=== PATIENT | female | born 1990 ===

== ENCOUNTER 2016-11-03 13:58 | Emergency (ER) | payer OTHER ==
[2016-11-03 16:27] VITALS: BP 111/65
[2016-11-03] MEDS ORDERED: Ibuprofen TAB* 400 MG PO ONE (16:38)
--- NOTE | 2016-11-03 16:42 | UC ---
Headache HPI - HPI Summary HPI Summary: headache with light sensitivity. She gets these symptoms with sinus infections, which occur several times a year. No fever. Sinus drainage, yellow. Productive cough for 3 weeks. Mild nausea. No neck stiffness. No rash. Has history of migraines. - History Of Current Complaint Chief Complaint: Kayode Stated Complaint: HEADACHE/COUGH/CONGESTION Time Seen by Provider: 11/03/16 16:30 Hx Obtained From: Patient Hx Last Menstrual Period: 08/30/16 Onset/Duration: Gradual Onset, Lasting Weeks - 2 Onset Of Symptoms: Gradual, Still Present Currently Pain Is: Moderate Timing: Constant - worse first thing in AM. Didn't take any meds today Character: Dull, Throbbing, Pressure, Typical Headache, Migraine Location of Headache: Frontal Aggravating Factor: Bright Lights Allevating Factors: Nothing Associated Signs And Symptoms: Positive: Negative, Nausea, Sinus Pressure. Negative: Dizziness, Seizure, Vomiting, Fever, Neck Pain, Neck Stiffness, Decreased LOC, Visual Changes Related History: Similar Episode/DX As: - sinusitis - Risk Factors SAH Risk Factors: Negative Meningitis Risk Factors: Negative SDH Risk Factors: Negative Temporal Arteritis Risk Factors: Female, - Allergies/Home Medications Allergies/Adverse Reactions: Allergies Allergy/AdvReac Type Severity Reaction Status Date / Time No Known Allergies Allergy Verified 11/03/16 16:29 PMH/Surg Hx/FS Hx/Imm Hx Previously Healthy: Yes Endocrine History Of: Denies: Diabetes Cardiovascular History Of: Denies: Hypertension, Pacemaker/ICD GI/ History Of: Denies: Renal Disease - Surgical History Surgical History: None - Family History Known Family History: Positive: Diabetes, Other - GM with asthma - Social History Occupation: Unemployed Lives: With Family Alcohol Use: None Substance Use Type: None Smoking Status (MU): Never Smoked Tobacco - Immunization History Most Recent Influenza Vaccination: [id number] Review of Systems Constitutional: Chills, Fatigue Skin: Negative Eyes: Negative ENT: Sore Throat, Nasal Discharge Respiratory: Cough Cardiovascular: Negative Gastrointestinal: Negative Genitourinary: Negative Motor: Negative Neurovascular: Negative Musculoskeletal: Negative Neurological: Negative Psychological: Negative All Other Systems Reviewed And Are Negative: Yes Physical Exam Triage Information Reviewed: Yes Appearance: Well-Appearing, Well-Nourished, Pain Distress - sitting in dark room , looks uncomfortable Vital Signs: Initial Vital Signs Temp 98.3 F 11/03/16 16:24 Pulse 86 11/03/16 16:24 Resp 16 11/03/16 16:24 BP 111/65 11/03/16 16:24 Pulse Ox 100 11/03/16 16:24 Eye Exam: Normal Eyes: Positive: Conjunctiva Clear ENT: Positive: Pharynx normal, TMs normal, Other: - pain over frontal sinus Neck exam: Normal Neck: Positive: Supple Respiratory Exam: Normal Respiratory: Positive: Lungs clear Cardiovascular Exam: Normal Musculoskeletal Exam: Normal Neurological Exam: Normal Psychological Exam: Normal Skin Exam: Normal Headache Course/Dx - Differential Dx/Diagnosis Differential Diagnosis/HQI/PQRI: Migraine, Sinus Headache, Viral Syndrome Provider Diagnoses: sinusitis Discharge - Discharge Plan Condition: Stable Disposition: HOME Prescriptions: Amoxicillin/Clavulanate TAB* [Augmentin TAB 875*] 875 mg PO BID #20 tab Patient Education Materials: Sinusitis (ED) Referrals: Sandeep Beck MD [Medical Doctor] - Giorgio Morse MD [Primary Care Provider] -
== END 2016-11-03 16:50 | disposition home or self-care (01) ==
LOC: UCCORT 13:58
DX: J32.9 Chronic sinusitis, unspecified (principal)
CPT/HCPCS: 99212; A9270-GY; G0463

== ENCOUNTER 2017-05-12 09:39 | Emergency (ER) | payer OTHER ==
[2017-05-12 09:59] VITALS: BP 128/54
[2017-05-12] MEDS ORDERED: Lidocaine 2% PF * 5 ML VIAL INJ ONE (10:08)
--- NOTE | 2017-05-12 10:08 | UC ---
Lower Extremity/Ankle HPI - HPI Summary HPI Summary: complaint of painful swollen left great toe ingrown toenail for approx 1 week has been clipping toenail without effect has been soaking it and using salves without relief not taking any medications for pain denies fever and chills - History of Current Complaint Chief Complaint: UCLowerExtremity Stated Complaint: LEFT FOOT COMPLAINT Time Seen by Provider: 05/12/17 10:00 Hx Obtained From: Patient Hx Last Menstrual Period: 08/30/16 - Allergies/Home Medications Allergies/Adverse Reactions: Allergies Allergy/AdvReac Type Severity Reaction Status Date / Time No Known Allergies Allergy Verified 05/12/17 09:58 PMH/Surg Hx/FS Hx/Imm Hx Previously Healthy: Yes Neurological History: Seizures - Surgical History Surgical History: None - Family History Known Family History: Positive: Diabetes, Other - GM with asthma Negative: Cardiac Disease, Hypertension - Social History Occupation: Employed Full-time Lives: With Family Alcohol Use: None Substance Use Type: None Smoking Status (MU): Never Smoked Tobacco - Immunization History Most Recent Influenza Vaccination: [id number] Review of Systems Constitutional: Negative Skin: Other - swollen left great toe Eyes: Negative ENT: Negative Respiratory: Negative Cardiovascular: Negative Gastrointestinal: Negative Genitourinary: Negative Motor: Negative Neurovascular: Negative Musculoskeletal: Negative Neurological: Negative Psychological: Negative All Other Systems Reviewed And Are Negative: Yes Physical Exam Triage Information Reviewed: Yes Appearance: No Pain Distress, Well-Nourished Vital Signs: Initial Vital Signs Temp 98.9 F 05/12/17 09:55 Pulse 79 05/12/17 09:55 Resp 16 05/12/17 09:55 BP 128/54 05/12/17 09:55 Pulse Ox 99 05/12/17 09:55 Vital Signs Reviewed: Yes Eyes: Positive: Conjunctiva Clear ENT: Positive: Pharynx normal, TMs normal Neck: Positive: No Lymphadenopathy Respiratory: Positive: Lungs clear, Normal breath sounds, No respiratory distress Cardiovascular: Positive: RRR, No Murmur, Pulses Normal, Brisk Capillary Refill Abdomen Description: Positive: Nontender, Soft Bowel Sounds: Positive: Present Musculoskeletal: Positive: No Edema Neurological: Positive: Alert Psychological Exam: Normal Skin Exam: Other - left great toe- edema throughout great toe- lateral side of toenail with large area of exudate beneath Procedures - Procedure Summary Procedure Summary: left great toe cleansed with betadyne 2% lidocaine injected both sides of toe- digital block lateral side of toenail removed sterile dresing applied pt tolerated procedure well Lower Extremity Course/Dx - Differential Dx/Diagnosis Differential Diagnosis/HQI/PQRI: Other - ingrown toenial, cellulitis Provider Diagnoses: left ingrown toenial -great toe Discharge - Discharge Plan Condition: Stable Disposition: HOME Prescriptions: Cephalexin CAP* [Keflex CAP*] 500 mg PO TID #21 cap Patient Education Materials: Ingrown Nail (ED) Referrals: Giorgio Morse MD [Primary Care Provider] - Additional Instructions: Please start antibiotic as directed Increase fluids and rest Take acetaminophen or ibuprofen for fever or pain Please review your discharge instructions. If your symptoms do not improve please call your primary care provider or return to urgent care.
== END 2017-05-12 10:51 | disposition home or self-care (01) ==
LOC: UCCORT 09:39
DX: L60.0 Ingrowing nail (principal); R56.9 Unspecified convulsions
CPT/HCPCS: 11730; 99212; G0463